=== PATIENT | male | born 1960 | race Caucasian/White ===

== ENCOUNTER 2021-11-04 05:09 | Observation (INO) ==
--- NOTE | 2021-10-03 11:54 | PAT Medication Instructions ---
Medication Instructions Date of Service October 03, 2021 Home Medications carvedilol 25 mg tablet (Coreg) 25 mg PO BID evolocumab 140 mg/mL subcutaneous pen injector (Repatha SureClick) 140 mg SUBCUT Q14D ezetimibe 10 mg tablet (Zetia) 10 mg PO HS nitroglycerin 0.3 mg sublingual tablet (Nitrostat) 0.3 mg SUBLINGUAL Q5M PRN omeprazole 20 mg capsule,delayed release 20 mg PO Q2D aspirin 81 mg tablet 81 mg PO HS glucosamine sulfate 500 mg tablet (Glucosamine) 500 mg PO QAM losartan 50 mg tablet 50 mg PO QAM rosuvastatin 10 mg tablet 10 mg PO HS Continue as directed nitroglycerin 0.3 mg sublingual tablet (Nitrostat) 0.3 mg SUBLINGUAL Q5M PRN (if needed) omeprazole 20 mg capsule,delayed release 20 mg PO Q2D ASK your prescriber and surgeon evolocumab 140 mg/mL subcutaneous pen injector (Repatha SureClick) 140 mg SUBCUT Q14D STOP taking 2 weeks before surgery (or as soon as possible if surgery is within 2 weeks) glucosamine sulfate 500 mg tablet (Glucosamine) 500 mg PO QAM DO NOT take the morning of surgery losartan 50 mg tablet 50 mg PO QAM Take morning of surgery With a small sip of water, OTHERWISE NOTHING TO EAT OR DRINK AFTER MIDNIGHT: carvedilol 25 mg tablet (Coreg) 25 mg PO BID Take evening before surgery carvedilol 25 mg tablet (Coreg) 25 mg PO BID ezetimibe 10 mg tablet (Zetia) 10 mg PO HS aspirin 81 mg tablet 81 mg PO HS (continue as normal unless told otherwise by surgeon) rosuvastatin 10 mg tablet 10 mg PO HS Other Notes If you have any questions please call us at [phone] or [phone] or [phone] or [phone]
--- NOTE | 2021-10-06 08:44 | Anesthesiology Consultation ---
Date of Service October 06, 2021 Assessment & Plan (1) Encounter for pre-operative examination: Chart Review Chart Review: Acceptable Risk for Surgery (pending preop Covid testing results ) and Patient seen in Pre Admission Testing Per PAT appt on 10/06/21, patient returned from [place] on 09/23/21 for work.. No known Covid positive exposures or Covid related symptoms. No known Covid infection in the past 90 days. Pt is vaccinated for Covid. Preop Covid testing scheduled 11/02/21= will await results. Educated on importance of self quarantining, social distancing and wearing mask in public for the patient one week prior to surgery and after Covid testing done Pt last seen by cardio 09/01/21= seen for follow up on CAD and genetic cholesterol disorder. Was referred to lipid specialist. Pt on Repatha, Crestor and Zetia. Pt scheduled for DOUGLAS October 2021. CAD- no anginal symptoms. Genetic familial hyperlipidemia- cholesterol under excellent control. HTN- d/c diltiazem- if needed losartan can be increased. Preoperative evaluation: From a cardiac standpoint he is asymptomatic. His LV systolic function is normal. I think he can proceed with his hip arthroplasty without further cardiac ev aluation. Teaching & Discussion Pre-Anesthesia Teaching/Discussion Notes: Instructed NPO after midnight before surgery,except medications with 15 cc of water. Medication instructions provided according to the [facility] guidelines. History Surgery Operation Date: 11/04/21 09:20 Proposed Procedures p Right Anterior Total Hip Arthroplasty - Jaden Jeffery DO Height/Weight Height: 5 ft 10 in Weight: 99.79 kg Allergies Allergy/AdvReac Type Severity Reaction Status Date / Time morphine Allergy Severe vomitting Verified 10/03/21 07:07 Medications Home Medications Medication Instructions Recorded Confirmed Last Taken carvedilol 25 mg tablet (Coreg) 25 mg PO BID 07/27/20 10/03/21 Unknown evolocumab 140 mg/mL subcutaneous 140 mg SUBCUT Q14D 07/27/20 10/03/21 Unknown pen injector (Repatha SureClick) ezetimibe 10 mg tablet (Zetia) 10 mg PO HS 07/27/20 10/03/21 Unknown nitroglycerin 0.3 mg sublingual 0.3 mg SUBLINGUAL Q5M PRN 07/27/20 10/03/21 Unknown tablet (Nitrostat) omeprazole 20 mg capsule,delayed 20 mg PO Q2D 07/27/20 10/03/21 Unknown release aspirin 81 mg tablet 81 mg PO HS 10/03/21 10/03/21 Unknown glucosamine sulfate 500 mg tablet 500 mg PO QAM 10/03/21 10/03/21 Unknown (Glucosamine) losartan 50 mg tablet 50 mg PO QAM 10/03/21 10/03/21 Unknown rosuvastatin 10 mg tablet 10 mg PO HS 10/03/21 10/03/21 Unknown Past Medical History Medical History CAD (coronary artery disease) S/p stent to RCA in 2003 S/p 2 vessel CABG - [address] Tushar Mcleod GERD (gastroesophageal reflux disease) Well controlled and stable High cholesterol Genetic cholesterol disorder (LDLR heterozygous) Hypertension Osteoarthritis Prediabetes Per records Exercise / Class Metabolic Activity II 4-5 Yardwork/Stairs/Walk up hill (one flight of stairs - no chest pain or SOB ) Past Family History Family History Other No family history of adverse response to anesthesia Past Surgical History Surgical History History of cardiac cath x1 stent RCA (2003), prior to CABG in 2006 History of colonoscopy History of heart artery stent (~2003) x1 stent History of heart bypass surgery (~2006) x2 vessels 2006 at [facility]. Follows with History of vasectomy Past Anesthesia History No Hx of Anesthesia Complications and No Family Hx of Anesthesia Complications History of PONV No Hx of PONV and No Hx of Motion Sickness Social History Smoking Status: Never smoker Do You Dip or Chew Tobacco: No Hx Alcohol Use: Yes alcohol intake frequency: a few times a month Hx Substance Use: No substance use type: does not use Review of Systems Patient denies chest pain, shortness of breath, dyspnea on exertion, cough, wheezing, palpitations. No hx of seizures, stroke, apnea/snoring. No hx of blood clots or blood t ransfusions Physical Exam Vital Signs VITALS BP 148/92 (usually well controlled per patient- BP was 122/76 at cardio appt 09/01/21) P 54 TEMP 97.8 SP02 96% RESP 16 Constitutional no acute distress ENMT Mouth: no TMJ clicking Thyromental Distance: < 3.5 Finger Breadths (3.0) Mallampati Class: II Caps and crowns to molars and side teeth Permanent implants to side teeth Neck + limited neck extension Respiratory normal respiratory effort; no respiratory distress Auscultation: lungs clear to auscultation bilaterally; no wheezes Cardiovascular Rate/Rhythm: regular rate and regular rhythm Heart Sounds: no murmur Vessels: no carotid bruit Musculoskeletal Spine: + pain with cervical ROM (mild ) Extremities: extremities normal to inspection Psychiatric Orientation: alert Lab Results Anesthesia Preop Results Results Anesthesia Widget: WBC 6.88 K/uL (4.8-10.8) 10/06/21 Hgb 13.1 g/dL (14.0-18.0) L 10/06/21 Hct 39.4 % (42-52) L 10/06/21 Plt 226 K/uL (130-400) 10/06/21 Na 138 mmol/L (136-145) 10/06/21 K 4.1 mmol/L (3.5-5.1) 10/06/21 Cl 106 mmol/L (98-107) 10/06/21 CO2 27 mmol/L (21-32) 10/06/21 BUN 17 mg/dl (6-23) 10/06/21 Creat 0.69 mg/dl (0.6-1.4) 10/06/21 Glucose Level 105 mg/dl (70-99(Fasting)) H 10/06/21 PT 11.0 Seconds (9.0-12.0) 10/06/21 PTT 25.6 Seconds (21.0-31.0) 10/06/21 INR 1.0 (0.9-1.1) 10/06/21 HA1c 5.8 % (4.5-5.6) H 10/06/21 Blood Type A Negative 10/06/21 Antibody Screen NEGATIVE 10/06/21 Testing Electrocardiogram Date: 10/06/21 Findings: + SB @ (54bpm) Otherwise normal EKG per cardio. Chest X-Ray Date: 10/06/21 Findings: + NAD FINDINGS: Frontal and lateral radiographs of the chest demonstrate the cardiomediastinal silhouette to be within normal limits. The patient is status post previous cardiothoracic surgery. The lungs are clear of alveolar opacities. There is no evidence for effusion bilaterally. There is no evidence for vascular congestion. There is no acute osseous pathology. IMPRESSION: 1. No acute cardiopulmonary disease. 2. Status post previous cardiothoracic surgery.
--- NOTE | 2021-11-03 08:49 | History & Physical Report ---
Date of Service November 03, 2021 Assessment & Plan (1) Osteoarthritis of right hip: We will proceed with a right anterior total hip arthroplasty. Postoperatively he will be started on aspirin for DVT prophylaxis and kept overnight for postoperative medical management. He plans to have the hospital set up home [facility] upon discharge. History of Present Illness Chief Complaint: Osteoarthritis of the right hip. Primary Care Provider: Julianne Moran DO Gera is a pleasant 61-year-old male who has been dealing with chronic increasing right hip and groin pain. This has been going on for years. He has seen some spine specialists for it. He has had an MRI of the spine, which did not look too bad. He has had injections deep in his hip joint, which took care all of his pain. X-rays clinical examination by diagnostic for advanced arthritis of the right hip. After failing conservative treatment, he has elected proceed with a right anterior total hip arthroplasty. Allergies Allergy/AdvReac Type Severity Reaction Status Date / Time morphine Allergy Severe vomitting Verified 10/03/21 07:07 Home Medications Medication Instructions Recorded Confirmed Type carvedilol 25 mg tablet (Coreg) 25 mg PO BID 07/27/20 10/03/21 History evolocumab 140 mg/mL subcutaneous 140 mg subcut Q14D 07/27/20 10/03/21 History pen injector (Brian Castaneda) ezetimibe 10 mg tablet (Zetia) 10 mg PO HS 07/27/20 10/03/21 History nitroglycerin 0.3 mg sublingual 0.3 mg sublingual Q5M PRN Chest 07/27/20 10/03/21 History tablet (Nitrostat) Pain omeprazole 20 mg capsule,delayed 20 mg PO Q2D 07/27/20 10/03/21 History release aspirin 81 mg tablet 81 mg PO HS 10/03/21 10/03/21 History glucosamine sulfate 500 mg tablet 500 mg PO QAM 10/03/21 10/03/21 History (Glucosamine) losartan 50 mg tablet 50 mg PO QAM 10/03/21 10/03/21 History rosuvastatin 10 mg tablet 10 mg PO HS 10/03/21 10/03/21 History Past Med/Surg History Medical History CAD (coronary artery disease) S/p stent to RCA in 2003 S/p 2 vessel CABG - [address] Tushar Mcleod GERD (gastroesophageal reflux disease) Well controlled and stable High cholesterol Genetic cholesterol disorder (LDLR heterozygous) Hypertension Osteoarthritis Prediabetes Per records Surgical History History of cardiac cath x1 stent RCA (2003), prior to CABG in 2006 History of colonoscopy History of heart artery stent (~2003) x1 stent History of heart bypass surgery (~2006) x2 vessels 2007 at [facility]. Follows with History of vasectomy Family History Other No family history of adverse response to anesthesia Social History Smoking Status: Never smoker Second Hand Exposure: No; Hx Alcohol Use: Yes Hx Substance Use: No Preferred Language: Slovak Communication Ability: Effective Ship Superintendent Required: No Beliefs That Will Affect Care: None Current Living Situation: Spouse Feels Safe at Home: Yes Assistive Devices: Hearing Aid - Bilateral Review of Systems All systems reviewed & are unremarkable except as noted in HPI & below. Physical Exam On physical examination of the right hip, he can ambulate independently. I can flex him to 90 degrees. He is limited range of motion. He has pain with internal and external rotation.. Constitutional WD/WN, vitals as above Eyes PERRL, conjunctivae normal, anicteric sclerae ENMT external ear and nose normal, oropharynx normal Neck trachea midline, no thyromegaly Respiratory normal respiratory effort, lungs clear to auscultation Cardiovascular RRR, no murmur, no edema Gastrointestinal (Abdomen) normal bowel sounds, soft, nontender, no hepatosplenomegaly Skin no rashes, warm and dry Psychiatric A+Ox3, euthymic affect Results & Data Results & Data Laboratory Results . Diagnostic Findings X-rays of the right hip and pelvis show advanced osteoarthritis with joint space narrowing, osteophyte formation, and [id number] articulation. PG Care Time/CCT Total # of Minutes Spent Total Time Spent with Patient: Total time spent is greater than 50% in coordination of care (as documented) at patient's floor/unit and/or counseling patient: Coding Level of Care Code None Diagnoses Osteoarthritis of right hip M16.11
[2021-11-04] MEDS ORDERED: LR 60ML/HR IV SCH (06:00)
[2021-11-04] MEDS ORDERED: GABAPENTIN 600 MG DOSE PO SCH (06:00)
[2021-11-04] MEDS ORDERED: ACETAMINOPHEN 500 MG TAB PO SCH (06:00)
[2021-11-04] MEDS ORDERED: TRANEXAMIC ACID 1,000 MG **IV Pre-op IV SCH (06:00)
[2021-11-04] MEDS ORDERED: LR 500ML BOLUS, THEN 15ML/HR IV SCH (06:00)
[2021-11-04] MEDS ORDERED: ceFAZolin 2000MG 2,000 MG/15 ML SYR IV SCH (06:00)
[2021-11-04] MEDS ORDERED: Ketorolac (*for OR use only*) 30 MG, dexAMETHasone 4 MG, KETAMINE HCL (**OR use only) 1... INFIL SCH (06:00)
[2021-11-04] MEDS ORDERED: TRANEXAMIC ACID 1,000 MG **IV Intra-op IV SCH (06:00)
[2021-11-04] MEDS ORDERED: FAMOTIDINE 20 MG TAB PO SCH (06:00)
[2021-11-04] MEDS ORDERED: dexAMETHasone 4 MG TAB PO SCH (06:00)
--- NOTE | 2021-11-04 06:31 | History & Physical Bridge Note ---
Date of Service November 04, 2021 History & Physical Bridge Note I have examined the patient, reviewed the History & Physical and in the interval since the performance of the History & Physical I have noted the following changes of clinical significance: no changes noted
[2021-11-04] MEDS ORDERED: BUPIVACAINE 0.5 % 5 MG/1 ML PF 10ML VIAL ONE (06:37)
[2021-11-04] MEDS ORDERED: MIDAZOLAM HCL 1 MG/ML 2ML VIAL ONE (06:39)
[2021-11-04] MEDS ORDERED: PROPOFOL IV EMULSION 10 MG/ML 20 ML VIAL IV ONE ×2 (06:39→08:24)
[2021-11-04] MEDS ORDERED: LIDOCAINE 2% MPF LOCAL 5 ML VIAL INFIL ONE (06:39)
[2021-11-04] MEDS ORDERED: fentaNYL citrate 100 MCG/2 ML VIAL ONE (06:40)
[2021-11-04] MEDS ORDERED: ORTHO JOINT ANESTHETIC ONE (06:44)
[2021-11-04] MEDS ORDERED: KETAMINE 50 MG/5 ML SYRINGE ONE (07:14)
[2021-11-04] MEDS ORDERED: ATROPINE SULFATE 0.1 MG/ML 10ML SYR IV PRN (07:48)
[2021-11-04] MEDS ORDERED: PHENYLEPHRINE 100MCG/ML 5ML SYR IV PRN (07:48)
[2021-11-04] MEDS ORDERED: ePHEDrine sulfate 50 MG/ML AMP IV PRN (07:48)
[2021-11-04] MEDS ORDERED: fentaNYL citrate 100 MCG/2 ML VIAL IV PRN (07:48)
[2021-11-04] MEDS ORDERED: ONDANSETRON INJ 2 MG/ML 2 ML VIAL IV PRN ×2 (07:48→10:09)
[2021-11-04] MEDS ORDERED: LABETALOL HCL IV 5 MG/ML 20ML IV PRN (07:48)
[2021-11-04] MEDS ORDERED: ePHEDrine sulfate 50 MG/ML AMP ONE (08:18)
--- NOTE | 2021-11-04 09:29 | XRay Report ---
AP PELVIS, CROSSTABLE LATERAL RIGHT HIP History: Right total hip arthroplasty. Degenerative arthritis. Postop. FINDINGS: The patient is status post a right total hip arthroplasty. The hardware is intact. No fract ure or dislocation. Skin mecca are in place. IMPRESSION: Right total hip arthroplasty. No evidence for hardware complication ACT 112: Negative or not required by law. Electronically signed by: Hari Sotomayor M.D. 11/04/2021 9:27 AM
--- NOTE | 2021-11-04 09:38 | Fluoroscopy Report ---
INTRAOPERATIVE RADIOGRAPHS CLINICAL HISTORY: Right hip arthroplasty. Fluoroscopy time: 21 seconds. FINDINGS: 2 spot fluoroscopic views of the right hip from an arthroplasty procedure are presented. Th e initial image shows surgical absence of the right femoral head with the acetabular cup in place. Th e second image shows a bipolar right hip arthroplasty in near anatomic alignment. There is no evidenc e of acute fracture on these fluoroscopic views. IMPRESSION: Intraoperative images from a right hip arthroplasty procedure as above. Electronically signed by: Colby Hassan M.D. 11/04/2021 9:37 AM
--- NOTE | 2021-11-04 09:46 | Anesthesiology Progress Note ---
Date of Service November 04, 2021 Anesthesia Post Procedure Vital Signs Vital Signs: Temp Pulse Pulse Resp BP Pulse Ox O2 Del Method 11/04/21 09:30 36.3 C L 54 L 19 115/76 96 Room Air 11/04/21 09:20 36.0 C L 52 L 13 115/77 95 Room Air 11/04/21 09:00 55 L 15 103/62 98 Room Air 11/04/21 08:50 57 L 16 117/66 100 Oxymask 11/04/21 08:40 60 16 103/64 100 Oxymask 11/04/21 09:10 56 L 13 107/80 98 Room Air 11/04/21 08:34 36.6 C 62 15 114/68 100 Oxymask 11/04/21 05:29 36.7 C 59 L 20 155/82 H 96 Room Air O2 Flow Rate 11/04/21 09:30 11/04/21 09:20 11/04/21 09:00 11/04/21 08:50 2 11/04/21 08:40 4 11/04/21 09:10 11/04/21 08:34 6 11/04/21 05:29 Transfer of Care Handoff Completed per policy Notes Mental Status: alert / awake / arousable Patient Amnestic to Procedure: Yes Nausea / Vomiting: adequately controlled Pain: adequately controlled Airway Patency, RR, SpO2: stable & adequate BP & HR: stable & adequate Hydration State: stable & adequate Neuraxial Anesthesia: was administered and sensory block is resolving Anesthetic Complications: no major complications apparent and Pt Satisfied with anesthetic care
[2021-11-04] MEDS ORDERED: NITROGLYCERIN SL 0.4 MG/TAB TAB SL PRN (10:09)
[2021-11-04] MEDS ORDERED: HYDROmorphone INJ 0.5 MG/0.5 ML SYR IV PRN (10:09)
[2021-11-04] MEDS ORDERED: bisacodyL 10 MG SUPP PR PRN (10:09)
[2021-11-04] MEDS ORDERED: NALOXONE HCL 0.4 MG/1 ML VIAL/CARP IV PRN (10:09)
[2021-11-04] MEDS ORDERED: NON-FORMULARY MEDICATION (Evolocumab [Repatha Sureclick] 140 mg/mL pen injector) SQ SCH (10:09)
[2021-11-04] MEDS ORDERED: METOCLOPRAMIDE HCL INJ 5 MG/ML 2 ML VIAL IV PRN (10:09)
[2021-11-04] MEDS ORDERED: MAGNESIUM HYDROXIDE SUSP 30 ML UDC PO PRN (10:09)
[2021-11-04] MEDS: carvediloL 25 MG TAB PO SCH ×2 (10:19→20:29)
--- NOTE | 2021-11-04 10:22 | Operative Report ---
Post Operative Report Pre & Post Diagnosis Operation Date: 11/04/21 07:00 Pre-Op Diagnosis: DJD Right Hip Post-Op Diagnosis: DJD Right Hip I identified the patient and participated in the time-out.: Yes Procedure Operation Date: 11/04/21 07:00 Actual Procedures p Right Anterior Total Hip Arthroplasty(Right) - Jaden Jeffery DO Surgeon Camille Jeffery MD Hoister Catalina Juares MD Estimated Blood Loss 200 Findings Consistent with Post-Op Diagnosis Consistent with post op diagnosis Specimens No specimens Description of Procedure I participated in prepping dressing and assisted Dr. Jeffery during the procedure. Please see Dr. Jeffery note I attest to the content of the Intraoperative Record and any orders documented therein. Any exceptions are noted below. Supervising Physician Co-Signing Physician Notes Dr. Jeffery
[2021-11-04] MEDS: SODIUM CHLORIDE 0.9% 1000ML 1,000 ML IV SCH ×2 (10:23→20:40)
[2021-11-04] MEDS: LOSARTAN POTASSIUM 50 MG TAB PO SCH (11:05)
[2021-11-04] MEDS: ASPIRIN 81 MG ECTAB PO SCH ×2 (11:05→20:31)
[2021-11-04] MEDS: DOCUSATE SODIUM 100 MG CAP PO SCH ×2 (11:06→20:30)
[2021-11-04] MEDS: MULTIVITAMIN TAB PO SCH (11:06)
[2021-11-04] MEDS: KETOROLAC 30 MG/ML VIAL IV SCH ×2 (11:06→17:22)
[2021-11-04] MEDS: ACETAMINOPHEN 500 MG TAB PO SCH ×2 (13:20→22:50)
[2021-11-04] MEDS: oxyCODONE HCL IR 5 MG TAB (IMMEDIATE RELEASE) PO PRN ×2 (14:53→20:28)
[2021-11-04] MEDS: ceFAZolin 2000MG 2,000 MG/15 ML SYR IV SCH ×2 (14:53→22:51)
[2021-11-04] MEDS ORDERED: EZETIMIBE 10 MG TABLET PO SCH (21:00)
[2021-11-04] MEDS ORDERED: ROSUVASTATIN CALCIUM 10 MG TAB PO SCH (21:00)
[2021-11-04] MEDS ORDERED: SENNA 8.6 MG TAB PO SCH (21:00)
[2021-11-05] MEDS: KETOROLAC 30 MG/ML VIAL IV SCH ×2 (00:42→06:08)
[2021-11-05] MEDS: ACETAMINOPHEN 500 MG TAB PO SCH (06:08)
[2021-11-05 07:31] LABS: Basophils # (auto) 0.02 K/uL (0-0.2); Basophils % (auto) 0.1 %; Hematocrit (blood only) 34.3 % (40.1-51.0); Hemoglobin 11.7 g/dl (14.0-18.0); Immature Granulocytes # (auto) 0.12 K/uL (0.00-0.02); Immature Granulocytes % (auto) 0.6 %; Lymphocytes # (auto) 0.87 K/uL (1.2-3.4); Lymphocytes % (auto) 4.4 %; Mean Corpuscular Hemoglobin 29.1 pg (25.0-34.0); Mean Corpuscular Hgb Conc 34.1 g/dL (32.0-36.0); Mean Corpuscular Volume 85.3 fL (80.0-100.0); Mean Platelet Volume 10.7 fL (9.4-12.4); Monocytes # (auto) 1.47 K/uL (0.24-0.82); Monocytes % (auto) 7.5 %; Neutrophils % (auto) 87.4 %; Platelet Count 218 K/uL (130-400); RDW Coefficient of Variation 12.7 % (11.5-14.5); RDW Standard Deviation 39.4 fL (36.4-46.3); Red Blood Count 4.02 M/uL (4.63-6.08); White Blood Count 19.58 K/ul (4.8-10.8)
[2021-11-05] MEDS ORDERED: dexAMETHasone 4 MG TAB PO SCH (08:00)
[2021-11-05 08:21] LABS: Calcium 8.8 mg/dl (8.5-10.1)
[2021-11-05] MEDS: carvediloL 25 MG TAB PO SCH (08:21)
[2021-11-05] MEDS: LOSARTAN POTASSIUM 50 MG TAB PO SCH (08:22)
[2021-11-05] MEDS: DOCUSATE SODIUM 100 MG CAP PO SCH (08:23)
[2021-11-05] MEDS: ASPIRIN 81 MG ECTAB PO SCH (08:23)
[2021-11-05] MEDS: MULTIVITAMIN TAB PO SCH (08:23)
--- NOTE | 2021-11-05 08:46 | Orthopedic Progress Note ---
Date of Service November 05, 2021 Assessment & Plan (1) Status post right hip replacement: Overall is doing very well. Is not having much pain in the right hip. He will be seen by physical therapy today for ambulation and range of motion exercises. He is on aspirin for DVT prophylaxis. He can be discharged home later today. He will follow-up with orthopedics in 2 weeks. Jodie Boss was seen and examined at bedside this morning. Overall is doing very well. He is not having any pain in the right hip. He has been up and ambulating to the bathroom. He has no complaints.. Review of Systems All systems reviewed & are unremarkable except as noted in HPI & below. Physical Exam On physical examination of the right hip, the dressing is clean and dry. His leg lengths are equal. He is active dorsiflexion plantarflexion of the right ankle. Sensation is intact throughout.. Results & Data Results & Data Laboratory Results . Diagnostic Findings Postoperative x-rays of the right hip show the prosthesis to be in anatomic alignment without any evidence of fracture, education, or loosening. PG Care Time/CCT Total # of Minutes Spent Total Time Spent with Patient: Total time spent is greater than 50% in coordination of care (as documented) at patient's floor/unit and/or counseling patient: Coding Level of Care Code 47242 Post Operative Follow-Up Diagnoses Status post right hip replacement Z96.641
--- NOTE | 2021-11-05 08:47 | Discharge Summary ---
Date of Service November 05, 2021 Admission HPI (Per Admitting) Gera is a pleasant 61-year-old male who has been dealing with chronic increasing right hip and groin pain. This has been going on for years. He has seen some spine specialists for it. He has had an MRI of the spine, which did not look too bad. He has had injections deep in his hip joint, which took care all of his pain. X-rays clinical examination by diagnostic for advanced arthritis of the right hip. After failing conservative treatment, he has elected proceed with a right anterior total hip arthroplasty. Admission Exam (Per Admitting) On physical examination of the right hip, he can ambulate independently. I can flex him to 90 degrees. He is limited range of motion. He has pain with internal and external rotation.. Principal Diagnosis Same as "Discharge Diagnosis" noted below under Discharge Instructions. Discharge Exam On physical examination of the right hip, the dressing is clean and dry. His leg lengths are equal. He is active dorsiflexion plantarflexion of the right ankle. Sensation is intact throughout.. Discharge Data Procedures Performed Operation Date: 11/04/21 07:00 Actual Procedures p Right Anterior Total Hip Arthroplasty(Right) - Jaden Jeffery DO Ordered Studies 11/04/21 07:00 FL hip RT 1V Routine Hospital Course (1) Status post right hip replacement: On November 04, 2021 Gera arrived to [facility] and underwent a right hip replacement without complication. He had a spinal anesthetic. Postoperatively he was started on aspirin for DVT prophylaxis and transferred to the general orthopedic floors. His hospital course was uneventful. On postop day #1, his vital signs were stable and his pain was well controlled. He was able to participate well with physical therapy doing ambulation and range of motion exercises. He was then discharged home. He will follow-up with orthopedics in 2 weeks. PG Care Time/CCT Total # of Minutes Spent Total Time Spent with Patient: Total time spent is greater than 50% in coordination of care (as documented) at patient's floor/unit and/or counseling patient: Discharge Plan Discharge Items Patient Disposition: Home - Home Health Services Reason For Visit: DJD Right Hip Discharge Diagnosis: Right hip replacement Activity: Per Instructions section Non-emergency contact: Surgeon Call non-emergency contact if: your wound has increased redness and your wound has increased drainage Follow-up/Referrals: Julianne Moran DO [Primary Care Provider] - Diet: Regular Addtl Attending Provider Instructions: Activity and Therapy Recommendations: * If you are using [facility] then therapy will be provided at your home until they feel you have accomplished all of your goals. * If you are using [facility] then Physical Therapy will be provided until they feel you are ready to start Outpatient Physical Therapy. * If you are not using home therapy then Outpatient Physical Therapy should start about 3-5 days from your day of surgery. Therapy will last about 6-10 weeks * You were shown a series of exercises in the hospital. Do these exercises three times each day including the exercises you were shown in physical therapy. * Get up and walk several times each day.~ For the first four weeks, try not to stand or walk for more than one hour at a time. If you do stand or walk for more than one hour, you will not hurt anything, but your leg will likely swell.~~ * As you feel comfortable, you may change from the walker or crutches to a cane and~then to independent walking. Medications: * Narcotic You will likely be sent home from the hospital with a prescription for the narcotic pain medication that worked best throughout your stay. * Aspirin Most patients will be required to take Aspirin 81mg twice a day for 6 weeks after surgery. This is obtained [id number] and a prescription is not necessary. * Other medications may be prescribed for specific circumstances. If you have any questions, please call the office at . * Resume previous home medications unless otherwise instructed TEDs/Elastic Stockings: The white elastic stockings help limit swelling and prevent blood clots from forming in your legs. The more you wear them, the more they work. Wear them for six weeks. Dressing Care: Leave the Silverlon dressing in place for 7 days. After 7 days you may remove the dressing. If the incision is not draining then you may leave the mecca open to air. If there is a little bit of drainage or if the mecca are getting stuck on your clothing then cover the incision with a dry dressing. The mecca will be removed at your 2 week follow-up appointment. Showering: You may shower with the Silverlon dressing in place. Do not let the shower spray hit the dressing directly. Pat the Silverlon dressing dry. If the dressing becomes wet underneath, then simply remove the dressing. Keep the incision dry until you are 7 days out from the day of surgery. After 7 days you may remove the Silverlon dressing and shower with the mecca exposed. Let soapy water run over the mecca and pat them dry. Do not scrub or soak the incision. Things To Watch For: * Drainage from the incision site that occurs more than one week after your surgery. * Increased redness at the incision site. * Fever above 102 degrees Fahrenheit. * Unusual chest pain or shortness of breath. * Call [facility] at with any of the above problems Follow-Up Visit: Follow-up with Dr. Jeffery's PA (Jaden Acosta) 2-3 weeks after your day of surgery. He will remove your mecca and answer any questions. If you have any additional questions or concerns, Dr Jeffery is usually in the office at the same time and will be available An appointment was probably scheduled when you signed-up for surgery in the office. If you have any questions call Office Instructions: More detailed instructions as well as Frequently Asked Questions were provided in a folder by our office when you signed-up for surgery. Please review these instructions when you get home. If you have any further questions or concerns, please feel free to call the office at [phone] Pending Studies at Discharge: No Stand-Alone Forms: [facility] [place], Smoking Cessation Medications and DC Order Prescriptions: New aspirin 81 mg Tablet,Delayed Release (Dr/Ec) 81 mg PO BID 42 Days Qty: 84 0RF oxycodone-acetaminophen 5-325 mg tablet 1 tab PO Q6H PRN (Reason: pain) Qty: 30 0RF Continued Repatha SureClick 140 mg/mL pen injector 140 mg subcut Q14D ezetimibe [Zetia] 10 mg tablet 10 mg PO HS nitroglycerin [Nitrostat] 0.3 mg tablet, sublingual 0.3 mg sublingual Q5M PRN (Reason: Chest Pain) Rx Instructions: do not exceed 3 doses per episode carvedilol [Coreg] 25 mg tablet 25 mg PO BID Rx Instructions: must administer with a meal/food omeprazole 20 mg capsule,delayed release(DR/EC) 20 mg PO Q2D Rx Instructions: QAM Q2D losartan 50 mg Tablet 50 mg PO QAM glucosamine sulfate [Glucosamine] 500 mg Tablet 500 mg PO QAM rosuvastatin 10 mg Tablet 10 mg PO HS Discontinued aspirin 81 mg Tablet 81 mg PO HS Discharge Orders: Discharge Order (Routine); Ordered 11/05/21 Ordered By: Jaden Jeffery Admission Data Admit Date/Time: 11/04/21 08:39 Attending Provider: Jaden Jeffery Admit Provider: Jaden Jeffery Primary Care Provider: Julianne Moran Other Providers: [facility],Home Health
[2021-11-05 08:55] LABS: BUN Creatinine Ratio 23.7 (10-20); Creatinine Clr Calc Pharmacy 122.9 ml/min; Est GFR (African American) 114.1 ml/min; Est GFR (Non-African American) 98.5 ml/min
[2021-11-05] MEDS ORDERED: PANTOprazole 40 MG TAB PO SCH (09:00)
--- NOTE | 2021-11-21 11:57 | Operative Report ---
PG Post Operative Report Pre & Post Diagnosis Operation Date: 11/04/21 07:00 Pre-Op Diagnosis: DJD Right Hip Post-Op Diagnosis: DJD Right Hip I identified the patient and participated in the time-out.: Yes Procedure Operation Date: 11/04/21 07:00 Actual Procedures p Right Anterior Total Hip Arthroplasty(Right) - Jaden Jeffery DO Surgeon Jaden Jeffery DO Beam Machine Operator Catalina Juares MD, Rip Todd PA-C Estimated Blood Loss 200 Findings Consistent with Post-Op Diagnosis Specimens Right femoral head Description of Procedure Implants used I used a ZimmerBiomet total hip arthroplasty system with a size 5 standard Avenir Complete stem, a 58 mm G7 cup with a 25mm screw, an E1 polyethylene liner, a 40 mm ceramic head with a +3.5 neck. Gera arrived at the hospital for the above procedure. He was seen in the preoperative holding area and the operative extremity was identified and signed. He was given a spinal anesthetic, a preoperative antibiotic, and TXA. He was then taken back to the operating room and laid on the table in the supine position. He was given basic sedation. The operative leg was secured to a Puristst leg positioner. The hip was then prepped and draped in sterile fashion. A timeout was done and the patient and the operative extremity was properly identified. An anterior approach was used. Dissection was taken down through the fascia and the tensor muscle belly was retracted laterally and the rectus was retracted medially. The circumflex vessels were identified and ligated. The capsule was then incised and tagged for later repair. The femoral neck was then cut and the femoral head was removed. The acetabulum was exposed. Time was spent doing a complete circumferential labral release. Sequential reaming of the acetabulum up to a size 57 reamer was done. Final reamings were done under fluoroscopy to ensure appropriate version. A Biomet 58 mm G7 cup was then impacted into place. A single 25 mm screw was placed. The E1 polyethylene liner was then snapped into place. Surrounding soft tissues were then injected with 100 cc of an orthopedic pain control cocktail. The proximal femur was then exposed. Sequential broaching up to a size 5 broach was done. Off that broach a size 40 head with a +3.5 neck was trialed. The hip was reduced and fluoroscopic images showed anatomic alignment of the implants in acceptable length. The broach was removed. The final size 5 standard offset Avenir Complete stem was then impacted into place. A ceramic 40 mm head with a +3.5 neck was then impacted onto the stem and the hip was reduced. Final fluoroscopic images showed anatomic alignment of the hip. The capsule was then closed with #1 Vicryl suture. A dilute betadyne lavage was then done for 3 minutes. The joint was then irrigated with normal saline solution. The fascia was closed with #1 PDS suture. Skin was closed with 2-0 Vicryl, mecca, and a Silverlon dressing. He was then transferred to a hospital bed and taken to the post anesthesia care unit in stable condition. He tolerated the procedure well. Rip Todd PA-C, was present for the entire procedure. He was critical for patient positioning, prepping, draping, retraction exposure, wound closure and application of sterile dressing. I attest to the content of the Intraoperative Record and any orders documented therein. Any exceptions are noted below.
== END 2021-11-05 11:15 | disposition home health service (06) ==
LOC: ASU 05:09 → 3W 05:09
DX: M16.11 Unilateral primary osteoarthritis, right hip; Z88.5 Allergy status to narcotic agent; Z79.82 Long term (current) use of aspirin; Z95.5 Presence of coronary angioplasty implant and graft; Z95.1 Presence of aortocoronary bypass graft; Z79.899 Other long term (current) drug therapy